=== PATIENT | male | born 1965 | race Caucasian/White ===

== ENCOUNTER 2020-10-01 14:58 | Emergency (ER) | payer OTHER ==
[~2020-10-01] VITALS: Ht 170.2 cm; Wt 75.0 kg
[2020-10-01] MEDS ORDERED: METF-960 PO (15:25)
[2020-10-01] MEDS ORDERED: ATOR10TA84 PO (15:25)
[2020-10-01] MEDS ORDERED: ASPI-1111 PO (15:28)
[2020-10-01] MEDS ORDERED: METF-911 PO (15:28)
[2020-10-01] MEDS ORDERED: ATOR40TA28 PO (15:28)
[2020-10-01] MEDS ORDERED: LIDOCAINE 1% 10 ML VIAL ID ONE (15:30)
[2020-10-01] MEDS ORDERED: PERTUSS(ACELL),DIPH,TET VAC/PF 0.5 ML VIAL IM ONE (15:30)
[2020-10-01] MEDS ORDERED: SODIUM CHLORIDE 0.9% 250 ML IRRIG SOLUTION BOTTLE IRRIG ONE (15:30)
[2020-10-01] MEDS ORDERED: POVIDONE-IODINE 10% 15 ML SOLUTION UD TP ONE (15:45)
[2020-10-01 16:51] VITALS: BP 122/71
== END 2020-10-01 16:57 | disposition home or self-care (01) ==
LOC: EMS 15:06
DX: S61.012A Laceration without foreign body of left thumb without damage to nail, initial encounter (principal); E11.9 Type 2 diabetes mellitus without complications; E78.00 Pure hypercholesterolemia, unspecified; Z88.1 Allergy status to other antibiotic agents; Z79.84 Long term (current) use of oral hypoglycemic drugs; W26.0XXA Contact with knife, initial encounter; Y93.89 Activity, other specified; Y92.008 Other place in unspecified non-institutional (private) residence as the place of occurrence of the external cause; Y99.8 Other external cause status
CPT/HCPCS: 12002; 73140; 82962; 90471; 90715; 93005; 99284; J3490